=== PATIENT | female | born 1995 | race Two or more races ===

== ENCOUNTER 2018-02-09 13:48 | Inpatient (IN) | payer OTHER ==
[~2018-02-09] VITALS: Ht 152.4 cm; Wt 3.6 kg
[2018-03-03] MEDS ORDERED: PRENATAL TABLE1 EAC1 PO (02:06)
[2018-03-11] MEDS ORDERED: DICLEGIS DR 101 EACH PO (09:34)
== END 2018-03-14 14:32 | DRG 788 ==
LOC: LDR → SURG-SUITE 03-11 07:49 → LDR 03-11 07:49 → SURG-SUITE 03-11 20:30 → LDR 03-15 12:49
PROVIDERS: Obstetrics & Gynecology
PROC: 4A1HXCZ Monitoring of Products of Conception, Cardiac Rate, External Approach (ICD-10-PCS; 2018-03-11)
PROC: 10D00Z1 Extraction of Products of Conception, Low, Open Approach (ICD-10-PCS; principal; 2018-03-11 21:45)
DX: O32.4XX0 Maternal care for high head at term, not applicable or unspecified (principal); Z3A.39 39 weeks gestation of pregnancy; Z37.0 Single live birth

== ENCOUNTER 2018-03-02 10:01 | Outpatient (CLI) | payer OTHER ==
[2018-03-03] MEDS ORDERED: PRENATAL TABLE1 EAC1 PO (02:06)
== END 2018-03-02 11:05 | disposition home or self-care (01) ==
LOC: NST 10:01
DX: Z34.83 Encounter for supervision of other normal pregnancy, third trimester (principal)

== ENCOUNTER 2018-03-03 00:56 | Outpatient (CLI) | payer OTHER ==
[2018-03-03] MEDS ORDERED: PRENATAL TABLE1 EAC1 PO (02:06)
== END 2018-03-03 08:55 | disposition home or self-care (01) ==
LOC: OBS/DEL 00:56
DX: O47.1 False labor at or after 37 completed weeks of gestation (principal); Z34.03 Encounter for supervision of normal first pregnancy, third trimester

== ENCOUNTER 2020-09-04 15:09 | Outpatient (CLI) | payer OTHER ==
[~2020-09-04 15:09] MED LIST: DICLEGIS DR 101 EACH PO; PRENATAL TABLE1 EAC1 PO
== END 2020-09-04 17:36 | disposition home or self-care (01) ==
LOC: NST 15:09
PROVIDERS: ATTEND Obstetrics & Gynecology Maternal & Fetal Medicine
DX: Z34.83 Encounter for supervision of other normal pregnancy, third trimester (principal)

== ENCOUNTER 2020-09-11 10:00 | Inpatient (IN) | payer OTHER ==
[~2020-09-11] VITALS: Ht 151.1 cm; Wt 3.6 kg
[2020-09-11] MEDS ORDERED: PRENATAL PO (12:31)
[2020-09-18] MEDS ORDERED: DOXYLAMINE-PYR1 EACH (13:39)
[2020-09-18] MEDS ORDERED: INTEGRA F CAPS1 EAC1 (13:39)
== END 2020-09-20 11:31 | disposition home or self-care (01) | DRG 788 ==
LOC: SURH 09-18 07:00 → O/R 09-18 11:40 → SURG-SUITE 09-18 11:40
PROVIDERS: ADMIT Obstetrics & Gynecology Maternal & Fetal Medicine; ATTEND Obstetrics & Gynecology Maternal & Fetal Medicine
PROC: 4A1HXFZ Monitoring of Products of Conception, Cardiac Rhythm, External Approach (ICD-10-PCS; 2020-09-18)
PROC: 10D00Z1 Extraction of Products of Conception, Low, Open Approach (ICD-10-PCS; principal; 2020-09-18 07:00)
DX: O65.5 Obstructed labor due to abnormality of maternal pelvic organs (principal); O34.211 Maternal care for low transverse scar from previous cesarean delivery; Z37.0 Single live birth; Z3A.39 39 weeks gestation of pregnancy

== ENCOUNTER 2023-12-01 12:18 | Outpatient (CLI) | payer OTHER ==
[~2023-12-01 12:18] MED LIST changes: +DOXYLAMINE-PYR1 EACH; +INTEGRA F CAPS1 EAC1; +PRENATAL PO
== END 2023-12-01 13:16 | disposition home or self-care (01) ==
LOC: NST 12:18
PROVIDERS: ATTEND Obstetrics & Gynecology Gynecology
DX: Z34.83 Encounter for supervision of other normal pregnancy, third trimester (principal)

== ENCOUNTER 2023-12-16 09:24 | Inpatient (IN) | payer OTHER ==
[~2023-12-16] VITALS: Ht 152.4 cm; Wt 72.6 kg
[2023-12-16 10:18] LABS: HEMATOCRIT 36.6 % (36.0-45.00); HEMOGLOBIN 12.5 g/dL (12.0-15.00); MEAN CELL VOLUME 89.7 fL (80.00-100.00); MEAN CORPUSCULAR HEMOGLOBIN 30.7 pg (27.00-32.0); MEAN CORPUSCULAR HGB CONC 34.2 g/dl (32.0-36.0); PLATELET COUNT 174 K/uL (150-450); RED BLOOD COUNT 4.08 M/uL (4.00-6.00); RED CELL DISTRIBUTION WIDTH 13.4 % (11.5-14.5)
[2023-12-16 11:07] LABS: INR 0.94; PARTIAL THROMBOPLASTIN TIME 27.6 SECONDS (22.0-34.0)
[2023-12-16 11:09] LABS: PROTHROMBIN TIME 10.3 SECONDS (9.0-11.5)
[2023-12-16 11:17] LABS: ALBUMIN 2.8 gm/dL (3.4-5.0); BILIRUBIN TOTAL 0.76 mg/dL (0.3-1.2); CREATININE SERUM 0.45 mg/dL (0.55-1.02); GFR 164.73; POTASSIUM 4.17 mEq/L (3.5-5.1); TOTAL PROTEIN 5.8 gm/dL (6.4-8.2)
[2023-12-24 05:51] VITALS: BP 110/77
[2023-12-24] MEDS ORDERED: OXYTOCIN 10 UNITS/ML VIAL ONE ×2 (07:52→11:56)
[2023-12-24] MEDS ORDERED: ERYTHROMYCIN BASE 1 GM TUBE OP ONE (07:53)
[2023-12-24] MEDS ORDERED: CITRIC ACID/SODIUM CITRATE 30 ML BLIST.PACK PO ONE (08:00)
[2023-12-24] MEDS ORDERED: CEFAZOLIN SODIUM 1,000 MG VIAL ONE (08:01)
[2023-12-24] MEDS ORDERED: IBUprofen 400 MG TABLET PO PRN (10:00)
[2023-12-24] MEDS ORDERED: OXYTOCIN 1,000 ML IV SCH (10:00)
[2023-12-24] MEDS ORDERED: MEPERIDINE HCL/PF 50 MG/ML VIAL IM PRN (10:00)
[2023-12-24] MEDS ORDERED: CHLORHEXIDINE GLUCONATE 120 ML BOTTLE TOP ONE (10:03)
[2023-12-24] MEDS ORDERED: MORPHINE SULFATE 4 MG/ML VIAL IV ONE ×2 (10:45→11:15)
[2023-12-24] MEDS ORDERED: ONDANSETRON HCL 2 MG/ML VIAL ONE (11:57)
[2023-12-24 12:36] VITALS: BP 110/69
[2023-12-24 16:21] VITALS: BP 111/58
[2023-12-24 20:00] VITALS: BP 97/67
[2023-12-25] VITALS: BP 102/67
[2023-12-25 08:00] VITALS: BP 104/73
[2023-12-25] MEDS ORDERED: OxyCODONE HCL/APAP UD (PERCOCET) PO PRN (08:00)
[2023-12-25 10:30] LABS: HEMATOCRIT 33.2 % (36.0-45.00); HEMOGLOBIN 11.5 g/dL (12.0-15.00); MEAN CELL VOLUME 89.6 fL (80.00-100.00); MEAN CORPUSCULAR HGB CONC 34.6 g/dl (32.0-36.0); PLATELET COUNT 144 K/uL (150-450); RED CELL DISTRIBUTION WIDTH 13.9 % (11.5-14.5)
[2023-12-25 15:36] VITALS: BP 100/64
[2023-12-26 01:18] VITALS: BP 100/63
[2023-12-26 09:31] VITALS: BP 107/75
== END 2023-12-26 12:17 | disposition home or self-care (01) | DRG 785 ==
LOC: O/R 12-24 05:43 → OB/GYN 12-24 05:43 → LDR 12-24 07:00 → OB/GYN 12-24 10:55
PROVIDERS: Obstetrics & Gynecology; ADMIT Obstetrics & Gynecology Maternal & Fetal Medicine; ATTEND Obstetrics & Gynecology Maternal & Fetal Medicine
PROC: 0UB70ZZ Excision of Bilateral Fallopian Tubes, Open Approach (ICD-10-PCS; 2023-12-24)
PROC: 0DNW0ZZ Release Peritoneum, Open Approach (ICD-10-PCS; 2023-12-24)
PROC: 4A1HXCZ Monitoring of Products of Conception, Cardiac Rate, External Approach (ICD-10-PCS; 2023-12-24)
PROC: 10D00Z1 Extraction of Products of Conception, Low, Open Approach (ICD-10-PCS; principal; 2023-12-24 07:00)
DX: O34.211 Maternal care for low transverse scar from previous cesarean delivery (principal); O99.62 Diseases of the digestive system complicating childbirth; K66.0 Peritoneal adhesions (postprocedural) (postinfection); Z37.0 Single live birth; Z30.2 Encounter for sterilization; Z20.822 Contact with and (suspected) exposure to COVID-19